=== PATIENT | male | born 1985 | race Caucasian/White ===

== ENCOUNTER 2020-11-19 04:31 | Emergency (ER) | payer OTHER, SELFPAY ==
--- NOTE | ~2020-11-19 | XR_ITS ---
EXAMINATION: XR shoulder RT min 2V DATE: 11/19/2020 04:59 INDICATION: Posttraumatic right shoulder pain TECHNIQUE: AP internally and externally rotated, AP oblique externally rotated and transscapular Y vi ews of the right shoulder were obtained. COMPARISON: None FINDINGS: Nondisplaced avulsion fracture which appears to involve the superior facet supraspinatus footplate of the greater tuberosity. Alignment remains essentially anatomic. No other fractures identified. Gleno humeral joint is normal. Acromioclavicular joint is normal. Soft tissues are unremarkable. Visualized portions of the lungs are clear. IMPRESSION: Nondisplaced greater tuberosity avulsion fracture which appears to involve the superior facet footpla te of the supraspinatus tendon. Reviewed, dictated and finalized at location A. IMPRESSION: Nondisplaced greater tuberosity avulsion fracture which appears to involve the superior facet footplate of the supraspinatus tendon.
[2020-11-19 04:36] VITALS: BP 102/52; PULSE 83; RESP 20; TEMP 36.7; O2SAT 95
--- NOTE | 2020-11-19 04:51 | ED.GENADULT ---
HPI - General Adult General Chief complaint: Extremity Injury, Upper Stated complaint: Shoulder pain Time Seen by Provider: 11/19/20 04:45 History of Present Illness HPI narrative: Patient 35-year-old gentleman who presents the emergency department with chief complaint of right shoulder pain. The patient reports that he was playing baseball and fell onto outstretched hand. The patient states he has pain in his right shoulder area. The patient reports he had prior injuries to the shoulder before in the past he was able to use his upper extremity afterwards and it is progressively gotten stiffer since the injury. Patient states that the pain is worse with movement and improved with rest. Patient denies numbness or tingling Related Data Allergies Allergy/AdvReac Type Severity Reaction Status Date / Time No Known Allergies Allergy Mild Verified 11/19/20 04:40 Review of Systems Review of Systems: Narrative: A 10 system review of systems was completed on the patient and is negative except for what is stated in the HPI. Nursing and ancillary documentation was reviewed. [facility] Social History Social History Gender identity (if verbalized by the patient): Male Comments Prior history of shoulder dislocation Exam Narrative: Exam Narrative: GENERAL: Well-appearing, well-nourished, and in no acute distress. HEAD: Normocephalic, atraumatic. EYES: PERRLA and EOMI. ENT: Nares clear, no rhinorrhea or epistaxis. Mucous membranes moist. NECK: Supple. CHEST: Clear to auscultation. No respiratory distress. HEART: Regular rate and rhythm. No murmur heard. Normal peripheral pulses. ABDOMEN: Soft, nontender, nondistended, normal active bowel sounds. EXTREMITIES: Normal range of motion. No edema. Tenderness to palpation of the right shoulder SKIN: Warm, dry, no rash. NEURO: No focal deficits. Alert and oriented x3. PSYCH: Normal mood and affect. Course Vital Signs Vital signs: Vital Signs Temperature 36.7 C 11/19/20 04:36 Pulse Rate 83 11/19/20 04:36 Respiratory Rate 20 11/19/20 04:36 Blood Pressure 102/52 L 11/19/20 04:36 Pulse Oximetry 95 11/19/20 04:36 Temperature 36.7 C 11/19/20 04:36 Pulse Rate 83 11/19/20 04:36 Respiratory Rate 20 11/19/20 04:36 Blood Pressure 102/52 L 11/19/20 04:36 Pulse Oximetry 95 11/19/20 04:36 Medical Decision Making Vital Signs Vital Signs: Vital Signs Temperature 36.7 C 11/19/20 04:36 Pulse Rate 83 11/19/20 04:36 Respiratory Rate 20 11/19/20 04:36 Blood Pressure 102/52 L 11/19/20 04:36 Pulse Oximetry 95 11/19/20 04:36 Temperature 36.7 C 11/19/20 04:36 Pulse Rate 83 11/19/20 04:36 Respiratory Rate 20 11/19/20 04:36 Blood Pressure 102/52 L 11/19/20 04:36 Pulse Oximetry 95 11/19/20 04:36 Discharge Plan Discharge Clinical Impression: Closed fracture of greater tuberosity of humerus Qualifiers: Encounter type: initial encounter Fracture alignment: displaced Laterality: right Qualified Code(s): S42.251A - Displaced fracture of greater tuberosity of right humerus, initial encounter for closed fracture Patient Disposition: Home, Self-Care Condition: Stable Instructions: Antibiotic Form, Arm Fracture in Adults (ED), How to Use a Sling (ED) Prescriptions: New hydrocodone-acetaminophen 5-325 mg tablet 1 tablet PO Q6H PRN (Reason: pain) 3 Days Qty: 12 RF: 0 Follow-up/Referrals: PHYSICIAN,BAND MACHINE OPERATOR [Primary Care Provider] - Mj Matthews MD [Physician] - 3 Days (please call for an appointment ) Carol Anthony DO [Physician] - Time of Disposition: 06:46
--- NOTE | 2020-11-19 04:52 | PC.NURSE ---
pt reports playing softball last pm and sliding into home base, landing on Right elbow first. since then, pt has had increased pain and limited ROM of RIGHT shoulder. appears lower than LEFT shoulder. pt reports unable to lift arm away from body in any direction. HX of multiple dislocations of BOTH shoulders. a/o x 4. resps even/nonlabored.
[2020-11-19 07:00] VITALS: BP 142/67; PULSE 67; RESP 16; TEMP 36.6; O2SAT 98
== END 2020-11-19 07:02 | disposition home or self-care (01) ==
PROVIDERS: Emergency Provider Emergency Medicine
DX: S42.254A Nondisplaced fracture of greater tuberosity of right humerus, initial encounter for closed fracture (principal); W18.30XA Fall on same level, unspecified, initial encounter; Y93.64 Activity, baseball
CPT/HCPCS: 73030; 99284; A4565

== ENCOUNTER 2021-01-13 09:44 | Emergency (ER) | payer OTHER, SELFPAY ==
--- NOTE | ~2021-01-13 | XR_ITS ---
XR lumbar spine 2-3V 01/13/2021 10:58 Indication: Low back pain Procedure: 3 views lumbar spine Comparison: No prior studies for comparison. Findings: Mild levocurvature of the lumbar spine. There is disc narrowing at L4-5 and L5-S1. There is grade 1 spondylolisthesis at L5-S1. No acute fracture or traumatic malalignment. Impression: 1: Mild lumbar spondylosis with grade 1 spondylolisthesis at L5-S1, possibly due to spondylolysis. Reviewed, dictated and finalized at location A. Impression: 1: Mild lumbar spondylosis with grade 1 spondylolisthesis at L5-S1, possibly du e to spondylolysis.
[2021-01-13 09:50] VITALS: BP 158/90; PULSE 70; RESP 15; TEMP 36.8; O2SAT 99
[2021-01-13 10:05] VITALS: BP 141/97; PULSE 70; RESP 15; TEMP 36.9; O2SAT 100
--- NOTE | 2021-01-13 10:54 | ED.BACK ---
HPI - Back Pain/Injury General Chief Complaint: Back Pain/Injury Stated Complaint: lower back pain Time Seen by Provider: 01/13/21 10:21 Source: patient and RN notes reviewed Mode of arrival: ambulatory Limitations: no limitations History of Present Illness HPI Narrative: This is a 35 year old male who presents for evaluation of low back pain since last night. HE states he was moving some tables around in his house yesterday. Last night he noticed low back pain that is worse with movement. He is intermittent issues with low back pain over the past 1 year. Today his back pain is worse. His pain is located midline along his spine and he notices some swelling. He states when he attempts to standing up his pain radiates to his hamstrings. He denies lower extremity weakness, numbnes, tingling, abdominal pain or fever. He has not taken anything for pain. Related Data Allergies Allergy/AdvReac Type Severity Reaction Status Date / Time No Known Allergies Allergy Mild Verified 11/22/20 10:26 Review of Systems Review of Systems: All systems reviewed & are unremarkable except as noted in HPI and below PMFSH Past Medical History Medical History (Updated 01/13/21 @ 13:15 by Helen Mclaughlin MD) Patient denies medical problems Surgical History Surgical History (Updated 11/23/20 @ 09:28 by Patricia Cardona RT(R)) History of shoulder surgery 2003 History of tonsillectomy Family History Family History (Updated 11/23/20 @ 09:27 by RT Maritza(R)) Other Arthritis Breast cancer Depression Heart disease Thyroid disease Social History Social History (Updated 11/23/20 @ 09:26 by Patricia Cardona RT(R)) Smoking packs per day: 0.1 Smoking cigarettes per day: 2.0 Years smoked: 4 Smoking pack-years: 0.40 Smoking status: Former smoker Alcohol intake: current Drinks per week: 10 Substance use: current Substance use type: marijuana Gender identity (if verbalized by the patient): Male Exam Const: General: no acute distress and alert Orientation/consciousness: patient oriented x3 Eyes: EOM: EOMs intact bilaterally Resp: Effort & Inspection: normal respiratory effort and no retractions Auscultation: clear to auscultation bilaterally Cardio: Rate: regular rate Rhythm: regular rhythm Heart sounds: no murmurs GI: GI Palp: Yes Soft to palpation, No Tenderness to palpation present (GI) and No Guarding due to palpation present (GI) Auscultation: normal bowel sounds Skin: General skin exam: normal color Rashes: no rashes Neuro: General: patient oriented x3, moves all extremities and CN's II-XI intact bilaterally Psych: Mental Status: mental status grossly normal Affect: normal affect Course Reevaluation(s) Reevaluation #1: Patient states he feels better. I discussed with patient xray findings. This appears to be muscle spasm , sprain Date: 01/13/21 Time: 13:15 Vital Signs Vital signs: Vital Signs Temperature 98.3 F 01/13/21 09:50 Pulse Rate 70 01/13/21 09:50 Respiratory Rate 15 01/13/21 09:50 Blood Pressure 158/90 H 01/13/21 09:50 Pulse Oximetry 99 01/13/21 09:50 Temperature 98.5 F 01/13/21 10:05 Pulse Rate 89 01/13/21 13:30 Respiratory Rate 18 01/13/21 13:30 Blood Pressure 150/62 H 01/13/21 13:30 Pulse Oximetry 100 01/13/21 13:30 MDM - Back Pain/Injury Imaging Data Radiologist's impression: ITS Impressions Lumbar Spine X-Ray 01/13/21 11:02 Impression: 1: Mild lumbar spondylosis with grade 1 spondylolisthesis at L5-S1, possibly due to spondylolysis. Discharge Plan Discharge Clinical Impression: Strain of lumbar region Patient Disposition: Home, Self-Care Condition: Stable Instructions: Acute Low Back Pain (ED), Lumbar Radiculopathy (ED), Lower Back Exercises (ED) Additional Instructions: Please follow up with your primary care physician if your back pain does not impr
[2021-01-13] MEDS: diazePAM (*CRX) 5 MG TABLET PO (11:27)
[2021-01-13] MEDS: KETOROLAC (*BKC) 60 MG/2 ML VIAL IM (11:28)
[2021-01-13 11:29] VITALS: BP 154/64; PULSE 90; RESP 18; O2SAT 100
[2021-01-13 13:30] VITALS: BP 150/62; PULSE 89; RESP 18; O2SAT 100
== END 2021-01-13 13:31 | disposition home or self-care (01) ==
PROVIDERS: Emergency Provider General Practice
DX: S39.012A Strain of muscle, fascia and tendon of lower back, initial encounter (principal); Z87.891 Personal history of nicotine dependence; M47.816 Spondylosis without myelopathy or radiculopathy, lumbar region; X50.9XXA Other and unspecified overexertion or strenuous movements or postures, initial encounter
CPT/HCPCS: 72100; 96372; 99283; A9270; J1885